=== PATIENT | male | born 1950 | race Caucasian/White ===

== ENCOUNTER 2019-03-20 10:32 | Emergency (ER) | payer MEDICARE, OTHER ==
[~2019-03-20] VITALS: Ht 167.6 cm; Wt 93.4 kg
[2019-03-20] MEDS ORDERED: AMLODIPINE BESY10 MG PO (11:06)
[2019-03-20] MEDS ORDERED: FLEXERIL PO (12:12)
[2019-03-20] MEDS ORDERED: NORCO 5-325 TA1 EAC1 PO (12:12)
[2019-03-20 12:23] VITALS: BP 145/84
== END 2019-03-20 12:25 | disposition home or self-care (01) ==
LOC: M.ERS 10:32
DX: S46.911A Strain of unspecified muscle, fascia and tendon at shoulder and upper arm level, right arm, initial encounter (principal); I10 Essential (primary) hypertension; Z91.011 Allergy to milk products; W06.XXXA Fall from bed, initial encounter; Y92.89 Other specified places as the place of occurrence of the external cause; Y93.89 Activity, other specified; Y99.8 Other external cause status

== ENCOUNTER → 2019-10-01 | Outpatient (CLI) | payer MEDICARE, OTHER ==
[~2019-10-01] MED LIST: AMLODIPINE BESY10 MG PO; FLEXERIL PO; NORCO 5-325 TA1 EAC1 PO
== END ==
LOC: M.ULTRA 09-29 15:00
DX: L97.929 Non-pressure chronic ulcer of unspecified part of left lower leg with unspecified severity (principal); L97.919 Non-pressure chronic ulcer of unspecified part of right lower leg with unspecified severity; R68.89 Other general symptoms and signs

== ENCOUNTER → 2020-04-02 | Outpatient (CLI) | payer MEDICARE, OTHER | LOC: M.RAD 14:14 | PROVIDERS: ATTEND Nurse Practitioner Family | DX: M77.31 Calcaneal spur, right foot (principal) ==

== ENCOUNTER → 2020-06-23 | Outpatient (CLI) | payer MEDICARE, OTHER | LOC: M.ULTRA 13:07 | PROVIDERS: ATTEND Nurse Practitioner Family | DX: I65.23 Occlusion and stenosis of bilateral carotid arteries (principal) ==

== ENCOUNTER → 2020-06-30 | Outpatient (CLI) | payer MEDICARE, OTHER ==
--- NOTE | 2020-06-30 17:11 | 2DMMODE ---
[place] [address] 2 D/M-MODE ECHOCARDIOGRAM Name: JENAE GAMBLE Room: [facility]#: [id number] Admission: 06/30/20 Attend Phys: Amberly Orellana Discharge: Date of : 48 Date of Service: 06/30/20 1711 Report #: [id number] THIS REPORT FOR: cc: Amberly Garrison Angela Jo RNP Holkins, John M. MD [facility] ~ APPROVED REPORT Study performed: 06/30/2020 08:29:10 EXAM: Comprehensive 2D, Doppler, and color-flow Echocardiogram Patient Location: Out-Patient BSA: 1.98 HR: 62 bpm BP: 118/88 mmHg Other Information Study Quality: Good Indications Hypertension/HDD 2D Dimensions IVSd: 11.40 (7-11mm) LVOT Diam: 20.93 (18-24mm) LVDd: 41.87 mm PWd: 10.20 (7-11mm) Ascending Ao: 29.64 (22-36mm) LVDs: 26.05 (25-40mm) Aortic Root: 32.07 mm Volumes Left Atrial Volume (Systole) LA ESV Index: 18.70 mL/m2 Aortic Valve AoV Peak Bernardo.: 1.16 m/s AO Peak Gr.: 5.39 mmHg LVOT Max P.60 mmHg AO Mean Gr.: 2.79 mmHg LVOT Mean P.07 mmHg LVOT Max V: 0.81 m/s AO V2 VTI: 25.31 cm LVOT Mean V: 0.47 m/s SHARON (VTI): 2.57 cm2 LVOT V1 VTI: 18.91 cm Mitral Valve E/A Ratio: 1.58 [place] [address] 2 D/M-MODE ECHOCARDIOGRAM Name: JENAE GAMBLE Room: [facility]#: [id number] Admission: 06/30/20 Attend Phys: Amberly Orellana Discharge: Date of : 48 Date of Service: 06/30/20 1711 Report #: [id number] MV Decel. Time: 190.62 ms MV E Max Bernardo.: 0.78 m/s MV PHT: 55.28 ms MVA (PHT): 3.98 cm2 TDI E/Lateral E': 8.67 E/Medial E': 11.14 Medial E' Bernardo.: 0.07 m/s Lateral E' Bernardo.: 0.09 m/s Pulmonary Valve PV Peak Bernardo.: 0.75 m/s PV Peak Gr.: 2.26 mmHg Tricuspid Valve RAP Estimate: 5.00 mmHg TR Peak Gr.: 31.61 mmHg RVSP: 36.61 mmHg PA Pressure: 36.61 mmHg Left Ventricle The left ventricle is normal size. There is normal LV segmental wall motion. There is normal left ventricular wall thickness. Left ventricular systolic function is normal. The left ventricular ejection fraction is within the normal range. LVEF is 55-60%. The left ventricular diastolic function is normal. Right Ventricle The right ventricle is normal size. The right ventricular systolic function is normal. Atria The left atrium size is normal. The right atrium size is normal. Aortic Valve Mild aortic valve sclerosis. Trace aortic regurgitation. There is no aortic valvular stenosis. Mitral Valve The mitral valve is normal in structure. Mild mitral regurgitation. No evidence of mitral valve stenosis. Tricuspid Valve The tricuspid valve is normal in structure. Mild tricuspid regurgitation[place] [address] 2 D/M-MODE ECHOCARDIOGRAM Name: JENAE GAMBLE Room: [facility]#: [id number] Admission: 06/30/20 Attend Phys: Amberly Orellana Discharge: Date of : 48 Date of Service: 06/30/20 1711 Report #: [id number] The pulmonary valve is normal in structure. There is no pulmonic valvular regurgitation. Great Vessels The aortic root is normal in size. IVC is normal in size and collapses >50% with inspiration. Pericardium There is no pericardial effusion. <Conclusion> The left ventricle is normal size. There is normal left ventricular wall thickness. Left ventricular systolic function is normal. The left ventricular ejection fraction is within the normal range. LVEF is 55-60%. The left ventricular diastolic function is normal. The left atrium size is normal. The right atrium size is normal. Mild aortic valve sclerosis. Trace aortic regurgitation. There is no aortic valvular stenosis. The mitral valve is normal in structure. Mild mitral regurgitation. The tricuspid valve is normal in structure. Mild tricuspid regurgitation. IVC is normal in size and collapses >50% with inspiration. There is no pericardial effusion. There is normal LV segmental wall motion. <ELECTRONICALLY SIGNED> By: Didier Rodarte MD, FACC 06/30/201710 10 10 Didier Rodarte MD, FACC /INF
== END ==
LOC: M.CRD 06-29 12:14
PROVIDERS: ATTEND Nurse Practitioner Family
DX: I08.1 Rheumatic disorders of both mitral and tricuspid valves (principal); I12.9 Hypertensive chronic kidney disease with stage 1 through stage 4 chronic kidney disease, or unspecified chronic kidney disease; R55 Syncope and collapse; N28.1 Cyst of kidney, acquired; D47.2 Monoclonal gammopathy; N18.32 Chronic kidney disease, stage 3b

== ENCOUNTER 2021-01-14 13:42 | Emergency (ER) | payer MEDICARE, OTHER ==
[~2021-01-14] VITALS: Ht 167.6 cm; Wt 88.9 kg
[2021-01-14] MEDS ORDERED: ALLOPURINOL 10100 M3 PO (14:24)
[2021-01-14] MEDS ORDERED: NORCO5 PO ×2 (17:05→17:07)
[2021-01-14 17:08] VITALS: BP 182/101
== END 2021-01-14 17:08 | disposition home or self-care (01) ==
LOC: M.ERS 13:42
DX: M25.562 Pain in left knee (principal)